=== PATIENT | female | born 1965 | race Caucasian/White ===

== ENCOUNTER 2024-11-16 11:22 | Emergency (ER) | payer BC ==
[2024-11-16] MEDS: diphenhydrAMINE 50 MG/ML SDV IVPUSH ONE (12:12)
[2024-11-16] MEDS: methylPREDNISolone Sodium Succinate 125 MG/2 ML SDV IVPUSH ONE (12:14)
[2024-11-16] MEDS: Sodium Chloride 0.9% 10 ML Syringe FLUSH PRN (12:23)
== END 2024-11-16 13:38 | disposition home or self-care (01) ==
LOC: JD.ED 11:22
DX: L03.113 Cellulitis of right upper limb (principal); T63.461A Toxic effect of venom of wasps, accidental (unintentional), initial encounter; Z88.8 Allergy status to other drugs, medicaments and biological substances; Z79.899 Other long term (current) drug therapy
CPT/HCPCS: 96374; 96375; 99281-25; 99283; A9270-GY; J0696; J1200; J1308; J2919